=== PATIENT | female | born 1990 | race Caucasian/White ===

== ENCOUNTER 2018-04-04 19:53 | Outpatient (CLI) | payer OTHER, MEDICAID, SELFPAY ==
[2018-04-04 20:28] VITALS: BP 126/83; PULSE 107; RESP 16; TEMP 36.7
[2018-04-04 20:42] LABS: Appearance Urine UA CLEAR; Bilirubin Urine UA NEGATIVE (NEGATIVE); Color Urine UA YELLOW; Glucose Urine UA NEGATIVE (Normal); Ketones Urine UA NEGATIVE (NEGATIVE); Leukocyte Esterase Urine UA 1+ (NEGATIVE); Nitrite Urine UA NEGATIVE (Negative); Occult Blood Urine UA NEGATIVE (Negative); Protein Urine UA NEGATIVE (Negative); Specific Gravity Urine UA <=1.005 (1.000-1.035); Urobilinogen Urine UA 0.2 E.U./dL (0.2); pH Urine UA 6.5 (4.5-8.0)
[2018-04-04 20:45] LABS: RBC Urine 0-1/HPF (0-5/HPF); Squamous Epithelial Cell Urine 0-1 /HPF; WBC Urine 5-10/HPF (0-5/HPF)
[2018-04-04 20:46] LABS: Bacteria Urine Occasional (0-1); Culture Indicated Urine Specimen Cultured
== END 2018-04-04 20:50 | disposition home or self-care (01) ==
LOC: OB 04-06 08:52
PROVIDERS: Family Provider Physician Assistant; PCP Physician Assistant; Visit Provider Family Medicine
DX: Z34.83 Encounter for supervision of other normal pregnancy, third trimester (principal); Z3A.32 32 weeks gestation of pregnancy
CPT/HCPCS: 59025; 59050; 81001; 84112; 87086; G0378; G0379

== ENCOUNTER → 2020-05-09 14:27 | Outpatient (CLI) | payer OTHER, MEDICAID, SELFPAY ==
--- NOTE | 2020-05-09 14:29 | DI.US.S_ITS ---
PROCEDURE: US PELVIC COMPLETE INDICATIONS: IUD CHECK. INITIAL DATING AND VIABIALITY. TECHNIQUE: Real-time scanning was performed of the pelvic organs, with image documentation. Additional endovaginal scanning was necessary due to incomplete visualization of the adnexal and endometrial structures by transabdominal scanning. COMPARISON: None. FINDINGS: Transabdominal scanning: Limited scanning through the kidneys shows no hydronephrosis. No pathologic free abdominal or pelvic fluid. Endovaginal scanning: Uterus: Uterus is normal in size at 9.2 x 4.7 x 4.3 cm. The endometrium measures 14 mm in combined thickness. No intrauterine is identified. An IUD is seen in a low position within the lower uterine segment Ovaries: Both ovaries have a normal size and appearance. Both ovaries have normal arterial and vascular flow. IMPRESSION: 1. No intrauterine is identified. 2. If the patient is , ectopic cannot be excluded. 3. The IUD is not in appropriate position in a low position within the lower uterine segment. Dictated by: Kunal Rivera M.D. on 05/09/2020 at 16:29 Approved by: Kunal Rivera M.D. on 05/09/2020 at 16:33
== END ==
PROVIDERS: Family Provider Physician Assistant; PCP Physician Assistant; Referring Provider Family Medicine; Visit Provider Family Medicine
DX: T83.31XA Breakdown (mechanical) of intrauterine contraceptive device, initial encounter (principal); T83.32XA Displacement of intrauterine contraceptive device, initial encounter; Z33.1 Pregnant state, incidental
CPT/HCPCS: 76830; 76856

== ENCOUNTER → 2020-05-10 11:12 | Outpatient (CLI) | payer OTHER, MEDICAID, SELFPAY ==
[2020-05-10 12:55] LABS: HCG Quantitative /Beta subunit < 2.4 mIU/mL
== END ==
PROVIDERS: Family Provider Physician Assistant; PCP Physician Assistant; Referring Provider Family Medicine; Visit Provider Family Medicine
DX: Z34.90 Encounter for supervision of normal pregnancy, unspecified, unspecified trimester (principal)
CPT/HCPCS: 36415; 84702; 86900; 86901

== ENCOUNTER → 2020-05-25 12:45 | Outpatient (CLI) | payer OTHER, MEDICAID, SELFPAY | PROVIDERS: PCP Family Medicine; Visit Provider Family Medicine | DX: N89.8 Other specified noninflammatory disorders of vagina (principal) | CPT/HCPCS: 87210 ==

== ENCOUNTER → 2020-10-04 11:57 | Outpatient (CLI) | payer OTHER, MEDICAID, SELFPAY ==
--- NOTE | 2020-10-04 11:58 | DI.RAD.S_ITS ---
PROCEDURE: XR WRIST LT MIN 3V INDICATIONS: left wrist injury and pain, decreased range of motion TECHNIQUE: For views of the wrist were acquired. COMPARISON: None. FINDINGS: Bones: No fractures or dislocations. No suspicious bony lesions. Scaphoid view: No fracture Soft tissues: No suspicious soft tissue calcifications. IMPRESSION: No acute abnormality of the left wrist or scaphoid bone. Dictated by: Kunal Rivera M.D. on 10/04/2020 at 18:22 Approved by: Kunal Rivera M.D. on 10/04/2020 at 18:24
== END ==
PROVIDERS: PCP Family Medicine; Referring Provider Family Medicine; Visit Provider Family Medicine
DX: M25.532 Pain in left wrist (principal); S69.92XA Unspecified injury of left wrist, hand and finger(s), initial encounter
CPT/HCPCS: 73110

== ENCOUNTER → 2021-01-21 10:52 | Outpatient (CLI) | payer OTHER, MEDICAID, SELFPAY ==
--- NOTE | 2021-01-21 10:54 | DI.US.S_ITS ---
PROCEDURE: US PELVIC COMPLETE INDICATIONS: PELVIC PAIN TECHNIQUE: Real-time scanning was performed of the pelvic organs, with image documentation. Additional endovaginal scanning was necessary due to incomplete visualization of the adnexal and endometrial structures by transabdominal scanning. COMPARISON: [facility], , US PELVIC COMPLETE, 05/09/2020, 14:40. FINDINGS: Uterus: Uterus is normal in size at 8.1 x 5.1 x 6.6 cm. The endometrium measures 4-5 mm in combined thickness. Ovaries: The right ovary measures 3.5 x 2.5 x 2.4 cm. The left ovary measures 3.6 x 2.2 x 2.3 cm. More than 12 follicles are seen involving the left ovary. The right ovary is less well seen. The ovaries otherwise have a normal sonographic appearance. No adnexal masses are seen. Other: No pathologic free abdominal or pelvic fluid. IMPRESSION: More than 12 follicles are seen involving the left ovary (with the right ovary less well seen), which is consistent with polycystic ovarian syndrome. Dictated by: Jose Michel M.D. on 01/21/2021 at 11:04 Approved by: Jose Michel M.D. on 01/21/2021 at 11:06
== END ==
PROVIDERS: PCP Family Medicine; Referring Provider Family Medicine; Visit Provider Family Medicine
DX: R10.2 Pelvic and perineal pain (principal)
CPT/HCPCS: 76830; 76856